=== PATIENT | female | born 1950 | race Caucasian/White ===

== ENCOUNTER 2017-07-22 12:57 | Emergency (ER) | payer MEDICARE ==
[~2017-07-22] VITALS: Ht 167.6 cm; Wt 92.5 kg
== END 2017-07-22 17:00 | disposition home or self-care (01) ==
LOC: ER 12:57
DX: B02.9 Zoster without complications (principal)
CPT/HCPCS: 99282

== ENCOUNTER 2017-12-15 19:13 | Emergency (ER) | payer MEDICARE, OTHER ==
[~2017-12-15] VITALS: Ht 167.6 cm; Wt 92.5 kg
[2017-12-15] MEDS ORDERED: HYDROCODONE/APAP 7.5MG-325MG 1 EA TAB PO PRN (19:30)
[2017-12-15] MEDS ORDERED: TRAMADOL HCL 50 MG TAB PO ONE (20:15)
--- NOTE | 2017-12-15 20:17 | Diagnostic Imaging Report ---
EXAM: HIP LEFT 2-3 VW (+/- PELVIS) INDICATION: Fall down size, left-sided pain COMPARISON: None FINDINGS: BONES: No acute fractures. JOINTS: No malalignment. SOFT TISSUES: Pelvic surgical clips IMPRESSION: No pelvic or left hip fracture. Signed by: Dr. Tangela Bradford M.D. on 12/15/2017 8:14 PM
--- NOTE | 2017-12-15 20:18 | Diagnostic Imaging Report ---
EXAM: SHOULDER LEFT COMPLETE, 2 views INDICATION: Fall downstairs, left shoulder pain COMPARISON: None FINDINGS: BONES: No acute fractures. Supraspinatous calcific tendinopathy. JOINTS: No malalignment. Mild degenerative changes. SOFT TISSUES: Normal IMPRESSION: No left shoulder fracture or dislocation Signed by: Dr. Tangela rBadford M.D. on 12/15/2017 8:15 PM
--- NOTE | 2017-12-15 20:22 | Diagnostic Imaging Report ---
Exam: Left rib series Indication: Fell down stairs, left-sided pain Comparison: None Findings: Nondisplaced posterior lateral ninth rib fracture. Subsegmental atelectasis left lung base. No pleural effusion or pneumothorax. Impression: Nondisplaced posterior lateral ninth rib fracture, possibly acute. No pleural effusion or pneumothorax. Signed by: Dr. Tangela Bradford M.D. on 12/15/2017 8:18 PM
[2017-12-15 22:05] VITALS: BP 176/91
== END 2017-12-15 22:07 | disposition home or self-care (01) ==
LOC: ER 19:13
DX: R07.89 Other chest pain (principal); S22.32XA Fracture of one rib, left side, initial encounter for closed fracture; S40.012A Contusion of left shoulder, initial encounter; S70.02XA Contusion of left hip, initial encounter; W10.8XXA Fall (on) (from) other stairs and steps, initial encounter; Y92.008 Other place in unspecified non-institutional (private) residence as the place of occurrence of the external cause; E03.9 Hypothyroidism, unspecified; G50.0 Trigeminal neuralgia
CPT/HCPCS: 71101; 99283

== ENCOUNTER 2018-03-16 17:02 | Emergency (ER) | payer MEDICARE, OTHER ==
[~2018-03-16] VITALS: Ht 167.6 cm; Wt 92.5 kg
--- OUTSIDE RECORDS SUMMARY | 2018-03-16 17:04 | XMS REPORT ---
[facility] Address Unknown Phone Unavailable Care Team Providers Care Internet Security Specialist Name Role Phone Georgette GONZALES Unavailable Unavailable Problems This patient has no known problems. Allergies, Adverse Reactions, Alerts This patient has no known allergies or adverse reactions. Medications This patient has no known medications. Results Test Description Test Time Test Comments Text Results Atomic Results Result Comments RIBS UNILAT W/CXR 2017-12-15 20:15:00 [place] [address] Patient Name: KIKI ROBERSON MR #: [id number] : 1950 Age/Sex: 67/F Req #: [id number] [facility] Physician: Ordered by: RAKESH TURNER INTERNET MARKETING DIRECTOR Report #: [id number] Location: ER Room/Bed: Procedure: [id number] DX/RIBS UNILAT W/CXR Exam Date: 12/15/17 Exam Time: 1936 REPORT STATUS: Signed Exam: Left rib series Indication: Fell down stairs, left-sided pain Comparison: None Findings: Nondisplaced posterior lateral ninth rib fracture. Subsegmental atelectasis left lung base. No pleural effusion or pneumothorax. Impression: Nondisplaced posterior lateral ninth rib fracture, possibly acute. No pleural effusion or pneumothorax. Signed by: Dr. Faith Bradford M.D. on 12/15/2017 8:18 PM Dictated By: FAITH BRADFORD MD 17 Transcribed By: NAKUL on 12/15/172017 COPY TO: RAKESH TURNER INTERNET MARKETING DIRECTOR SHOULDER LEFT COMPLETE 2017-12-15 20:14:00 [facility] [address] [id number] Patient Name: KIKI ROBERSON MR #: [id number] : 1950 Age/Sex: 67/F Req #: [id number] [facility] Physician: Ordered by: RAKESH TURNER INTERNET MARKETING DIRECTOR Report #: [id number] Location: ER Room/Bed: Procedure: [id number] DX/SHOULDER LEFT COMPLETE Exam Date: 12/15/17 Exam Time: 1936 REPORT STATUS: Signed EXAM: SHOULDER LEFT COMPLETE, 2 views INDICATION: Fall downstairs, left shoulder pain COMPARISON: None FINDINGS: BONES: No acute fractures. Supraspinatous calcific tendinopathy. JOINTS: No malalignment. Mild degenerative changes. SOFT TISSUES: Normal IMPRESSION: No left shoulder fracture or dislocation Signed by: Dr. Faith Bradford M.D. on 12/15/2017 8:15 PM Dictated By: FAITH BRADFORD MD 14 Transcribed By: NAKUL on 12/15/172014 COPY TO: RAKESH TURNER INTERNET MARKETING DIRECTOR HIP LEFT 2-3 VW (+/- PELVIS) 2017-12-15 20:12:00 [facility] [address] [place], [place] [address] Patient Name: KIKI ROBERSON MR #: [id number] : 1950 Age/Sex: 67/F Req #: [id number] Adm Physician: Ordered by: RAKESH TURNER NP Report #: [id number] Location: ER Room/Bed: Procedure: [id number] DX/HIP LEFT 2-3 VW (+/- PELVIS) Exam Date: Exam Time: REPORT STATUS: Signed EXAM: HIP LEFT 2-3 VW (+/- PELVIS) INDICATION: Fall down size, left-sided pain COMPARISON: None FINDINGS: BONES: No acute fractures. JOINTS: No malalignment. SOFT TISSUES: Pelvic surgical clips IMPRESSION: No pelvic or left hip fracture. Signed by: Dr. Faith Bradford M.D. on 12/15/2017 8:14 PM Dictated By: FAITH BRADFORD MD 13 Transcribed By: NAKUL on 12/15/172013 COPY TO: RAKESH TURNER NP
--- NOTE | 2018-03-16 17:42 | NUR ---
BROUGHT TO TRIAGE TO BE EVALUATED BY TAYLOR Garcia
--- NOTE | 2018-03-16 18:45 | Diagnostic Imaging Report ---
History: Fall Comparison studies: None Technique: Axial images were obtained from the skull base to the vertex. Coronal and sagittal reconstructions obtained from the axial data. Dose modulation, iterative reconstruction, and/or weight based adjustment of the mA/kV was utilized to reduce the radiation dose to as low as reasonably achievable. Findings: Scalp/skull: No abnormalities. No fractures, blastic or lytic lesions. Extra-axial spaces: No masses. No fluid collections. Brain sulci: Appropriate for age. Ventricles: Normal in size and configuration. No hydrocephalus. Parenchyma: No abnormal densities. No masses, hemorrhage, acute or chronic cortical vascular insults. Sellar/suprasellar region: No abnormalities Craniocervical junction: Patent foramen magnum. No Chiari one malformation. IMPRESSION: No abnormalities Signed by: Dr. Louis Perez M.D. on 03/16/2018 6:42 PM
--- NOTE | 2018-03-16 18:53 | Diagnostic Imaging Report ---
History: Fall Comparison studies: None Technique: Axial images were obtained through the cervical region.. Coronal and sagittal images reconstructed from the axial data. Dose modulation, iterative reconstruction, and/or weight based adjustment of the mA/kV was utilized to reduce the radiation dose to as low as reasonably achievable. Intravenous contrast: None Findings: Fractures: None. Soft tissues: No gross abnormalities. Atlantoaxial articulation: Mildly degenerated. Alignment: Focal kyphosis, centered at C5, leads to 1 mm anterolisthesis of C4 on C5. Additional 1 mm anterolisthesis of C7 on T1. No scoliosis. Cervicomedullary junction: No abnormalities. The foramen magnum is patent. Vertebrae: No infection or neoplasm. Degenerative changes: Discs: Mildly degenerated discs from C3 to C5, moderate from C5 to C7. Facets: Moderately degenerated, right from C2 to C5, left the left from C2 to C4, and left at C7-T1. Spinal canal stenosis: moderate at C5-6 and C6-7 due to disc osteophyte complexes. Foramina: Mildly stenotic left at C2-3, severe bilaterally at C3-4, right at C4-5 and left at C6-7 due to facet and uncoarthrosis IMPRESSION: 1. No acute abnormalities. 2. Cannot adequately evaluate for ligament, spinal cord and or vascular abnormalities. 3. Focal kyphosis at C5 associated with 1 mm anterolisthesis of C4 on C5 and of C7 on T1 is presumed to be degenerative. Superimposed degenerative foraminal and spinal canal stenosis as described. Signed by: Dr. Louis Perez M.D. on 03/16/2018 6:49 PM
--- NOTE | 2018-03-16 19:10 | Diagnostic Imaging Report ---
EXAMINATION: Left shoulder series. CLINICAL HISTORY: Status post fall, left shoulder pain. COMPARISON: None. . Discussion: The osseous structures are intact without evidence of acute, displaced fracture or dislocation. No osteolytic or osteoblastic lesions. There is no evidence of a.c. separation. The glenohumeral joint is within normal limits. 4-5 mm well-corticated calcific density projecting lateral to the greater tuberosity likely represents ligamentous or tendinous calcification. Soft tissues are unremarkable. Visualized portions of the left lung are clear. IMPRESSION: 1. No acute abnormalities. Signed by: Dr. Wei Haines M.D. on 03/16/2018 7:07 PM
== END 2018-03-16 19:47 | disposition home or self-care (01) ==
LOC: ER 17:02
DX: S00.83XA Contusion of other part of head, initial encounter (principal); S16.1XXA Strain of muscle, fascia and tendon at neck level, initial encounter; M25.512 Pain in left shoulder; S50.312A Abrasion of left elbow, initial encounter; S80.212A Abrasion, left knee, initial encounter; W01.0XXA Fall on same level from slipping, tripping and stumbling without subsequent striking against object, initial encounter; Y92.008 Other place in unspecified non-institutional (private) residence as the place of occurrence of the external cause; G50.0 Trigeminal neuralgia; E07.9 Disorder of thyroid, unspecified
CPT/HCPCS: 70450; 72125; 99283

== ENCOUNTER → 2021-04-21 | Day surgery (SDC) | payer MEDICARE, OTHER ==
[2021-04-19 15:24] LABS: BASOPHILS % 0.4 % (0.0-1.0); EOSINOPHILS # (AUTO) 0.2 (0.0-0.4); EOSINOPHILS % 2.8 % (0.0-6.0); HEMOGLOBIN 13.6 g/dL (12.0-16.0); LYMPHOCYTES # (AUTO) 1.4 (1.0-3.2); LYMPHOCYTES % 25.3 % (18.0-39.1); MEAN CORPUSCULAR HEMOGLOBIN 32.6 pg (28-32); MEAN CORPUSCULAR HGB CONC 33.2 g/dL (31-35); MEAN CORPUSCULAR VOLUME 98.3 fL (81-99); MONOCYTES # (AUTO) 0.5 (0.2-0.8); MONOCYTES % 9.6 % (4.4-11.3); NEUTROPHILS # (AUTO) 3.3 (2.1-6.9); NEUTROPHILS % 61.5 % (38.7-80.0); PLATELET COUNT 269 x10e3/uL (140-360); RED BLOOD COUNT 4.17 x10e6/uL (3.6-5.1); RED CELL DISTRIBUTION WIDTH 12.6 % (11.7-14.4)
[~2021-04-21] MED LIST: ATENOLOL25 MG; ATORVASTATIN CA20 MG PO; BENZOCAINE/TETRACAINE/BUTAMBEN AERO SPRAY 56 GM CAN ONE; CYCLOBENZAPRINE10 MG PO; CYMBALTA30 MG; ESTRADIOL1 G2; FENTANYL CITRATE/PF 100MCG/2 ML INJ ONE; GLUCAGON FOR INJ 1 MG VIAL ONE; HYOSCYAMINE SULFATE 0.5 MG/ML INJ ONE; LIDOCAINE HCL 2% LOCAL INJ 5 ML SDV VIAL INJ ONE; MIDAZOLAM HCL 2 MG/2 ML VIAL ONE; OMEPRAZOLE40 MG PO; PROPOFOL IV EMULSION 10 MG/ML 20 ML VIAL ONE; SIMETHICONE 40 MG/0.6 ML BTL ONE; VITAMIN B122500 MCG; VITAMIN D31 GM
[2021-04-21 11:30] VITALS: BP 106/70
== END | disposition home or self-care (01) ==
LOC: OR 08:08
PROVIDERS: ATTEND Internal Medicine Gastroenterology
DX: K21.9 Gastro-esophageal reflux disease without esophagitis (principal); D12.3 Benign neoplasm of transverse colon; K31.7 Polyp of stomach and duodenum; K29.50 Unspecified chronic gastritis without bleeding; K22.2 Esophageal obstruction; K44.9 Diaphragmatic hernia without obstruction or gangrene; K57.30 Diverticulosis of large intestine without perforation or abscess without bleeding; Z71.3 Dietary counseling and surveillance; Z87.11 Personal history of peptic ulcer disease; E03.9 Hypothyroidism, unspecified; D34 Benign neoplasm of thyroid gland; E78.00 Pure hypercholesterolemia, unspecified; I10 Essential (primary) hypertension; M54.2 Cervicalgia; Z88.6 Allergy status to analgesic agent; Z88.8 Allergy status to other drugs, medicaments and biological substances; Z01.810 Encounter for preprocedural cardiovascular examination; Z01.812 Encounter for preprocedural laboratory examination; Z20.822 Contact with and (suspected) exposure to COVID-19; Z79.899 Other long term (current) drug therapy; Z68.29 Body mass index [BMI] 29.0-29.9, adult; Z86.19 Personal history of other infectious and parasitic diseases
CPT/HCPCS: 36415; 43239; 43248; 45380; 45385; 85025; 88305; 88312; 93005; C9113; J1610; J1980; J2001; J2250; J2704; J3010; U0002; 43450; 45378